=== PATIENT | female | born 1975 | race Two or more races ===

== ENCOUNTER 2021-09-19 13:25 | Outpatient (CLI) | payer OTHER ==
[~2021-09-19 13:25] MED LIST: ALLEGRA ALLERG180 MG PO; FLONASE16 GM NS; GILTUSS TR TAB1 EACH PO
== END 2021-09-19 13:45 | disposition home or self-care (01) ==
LOC: PPH VACUNA 13:25
PROVIDERS: ATTEND Emergency Medicine Pediatric Emergency Medicine
DX: Z23 Encounter for immunization (principal)